=== PATIENT | male | born 2000 | race Two or more races ===

== ENCOUNTER 2022-05-10 05:33 | Emergency (ER) | payer OTHER ==
[~2022-05-10] VITALS: Ht 170.2 cm; Wt 98.4 kg
== END 2022-05-10 11:11 | disposition home or self-care (01) ==
LOC: ER 05:33
DX: J09.X2 Influenza due to identified novel influenza A virus with other respiratory manifestations (principal); Z20.822 Contact with and (suspected) exposure to COVID-19